=== PATIENT | female | born 1965 | race African-American/Black ===

== ENCOUNTER 2023-01-06 12:51 | Emergency (ER) | payer BC ==
[~2023-01-06] VITALS: Ht 154.9 cm; Wt 70.0 kg
[2023-01-06 13:17] LABS: BASOPHILS # (AUTO) 0.1 X10'3 (0-0.2); EOSINOPHILS % (AUTO) 0.3 % (0-6); LYMPHOCYTES # (AUTO) 3.3 X10'3 (1.1-4.8); MEAN CORPUSCULAR HEMOGLOBIN 33.1 PG (27.0-31.0); MEAN CORPUSCULAR HGB CONC 33.4 g/dL (33.0-36.5); MEAN CORPUSCULAR VOLUME 99.4 FL (78-98); MEAN PLATELET VOLUME 8.6 FL (7.4-10.4); MONOCYTES # (AUTO) 0.6 X10'3 (0-0.9); MONOCYTES % (AUTO) 7.8 % (2-12); NEUTROPHILS # (AUTO) 4.3 X10'3 (1.8-7.7); NEUTROPHILS % (AUTO) 51.9 % (42-75); PLATELET COUNT 151 X10'3 (140-440); RED BLOOD COUNT 2.42 X10'6 (4.20-5.60); RED CELL DISTRIBUTION WIDTH 22.2 % (11.5-14.5); WHITE BLOOD COUNT 8.4 X10'3 (4.5-11.0)
[2023-01-06 13:34] LABS: ALANINE AMINOTRANSFERASE 209 U/L (12-78); ALBUMIN 3.6 G/DL (3.4-5.0); ALKALINE PHOSPHATASE 181 IU/L (46-116); ANION GAP 15 (8-16); ASPARTATE AMINO TRANSFERASE 118 U/L (10-37); BILIRUBIN,TOTAL 3.3 MG/DL (0.1-1.0); BLOOD UREA NITROGEN 15 MG/DL (7-18); BUN/CREATININE RATIO 13.6 (10.0-20.0); CALCIUM 8.9 MG/DL (8.5-10.1); CHLORIDE 102 MMOL/L (99-107); GLUCOSE 128 MG/DL (70-104); POTASSIUM 4.2 MMOL/L (3.5-5.1); SODIUM 139 MMOL/L (135-145); TOTAL CARBON DIOXIDE 22.3 MMOL/L (24-32); TOTAL PROTEIN 5.4 G/DL (6.4-8.2); eGFR 51 ML/MIN
[2023-01-06 13:55] LABS: PLATELET ESTIMATE NORMAL
[2023-01-06 13:56] LABS: ANISOCYTOSIS 3+; HYPOCHROMASIA 1+; POIKILOCYTOSIS 1+
[2023-01-06 13:57] LABS: STOMATOCYTES 2+
[2023-01-06] MEDS ORDERED: LORazepam 2 mg/ml vial IV ONE (14:40)
[2023-01-06] MEDS ORDERED: magnesium 4gm in 100ml NS 100 ML IV ONE (14:40)
[2023-01-06] MEDS ORDERED: thiamine 100mg/ml 2ml inj. IV ONE (14:40)
[2023-01-06] MEDS ORDERED: cyanocobalamin 1,000 mcg/ml inj IM ONE (14:48)
[2023-01-06 15:39] LABS: LACTATE DEHYDROGENASE 694 U/L (81-234)
[2023-01-06 16:10] LABS: % IRON SATURATION 98 % (11-46); IRON 92 UG/DL (49-151); TOTAL IRON BINDING CAPACITY 94 UG/DL (259-388)
[2023-01-06] MEDS ORDERED: IRON-21 PO (16:43)
[2023-01-06 17:21] LABS: FERRITIN 881 NG/ML (8-252)
[2023-01-06 17:32] VITALS: BP 110/67
[2023-01-08 09:07] LABS: OCCULT BLOOD STOOL NEGATIVE (Neg)
== END 2023-01-06 17:34 | disposition home or self-care (01) ==
LOC: ER 12:51
DX: D64.9 Anemia, unspecified (principal); Z79.899 Other long term (current) drug therapy
CPT/HCPCS: 36415; 71045; 74018; 80053; 82272; 82607; 82728; 83540; 83550; 83615; 83880; 84484; 85008; 85025; 93005; 96365; 96372; 96375; 99285; J2060; J3411; J3420; J3475